=== PATIENT | female | born 1960 | race Caucasian/White ===

== ENCOUNTER → 2021-08-05 | Outpatient (CLI) | payer OTHER ==
--- NOTE | 2021-08-05 16:13 | CARD ---
MR#: [id number] Date of Study: 08/05/2021 Ordering Physician: SORAYA OSBORNE, Referring Physician: SORAYA OSBORNE Tech: Vanessa Haile PRISCILA APPROVED REPORT EXAM: Two-dimensional and M-mode echocardiogram with Doppler and color Doppler. Other Information Quality : AverageHR: 59bpm Rhythm : NSR INDICATION Pericardial Effusion RISK FACTORS Hypertension 2D DIMENSIONS RVDd2.8 (2.9-3.5cm)Left Atrium(2D)4.0 (1.6-4.0cm) IVSd0.9 (0.7-1.1cm)Aortic Root(2D)3.2 (2.0-3.7cm) LVDd4.4 (3.9-5.9cm)LVOT Diameter2.3 (1.8-2.4cm) PWd0.9 (0.7-1.1cm)LVDs2.4 (2.5-4.0cm) FS (%) 45.9 %SV68.8 ml Aortic Valve AoV Peak Carmelo.108.6cm/sAoV VTI25.2cm AO Peak GR.4.7mmHgLVOT Peak Carmelo.74.6cm/s AO Mean GR.2mmHgAVA (VMAX)2.89cm2 Mitral Valve MV E Egtdixzc44.3cm/sMV DECEL [id number] MV A Tadnfxvx26.5cm/sE/A Ratio1.3 Pulmonary Valve PV Peak Vpsfnyzj98.5cm/s Tricuspid Valve TR P. Zvkncujw298cd/sTR Peak Gr.25mmHg LEFT VENTRICLE The left ventricle is normal size. There is normal left ventricular wall thickness. The left ventricu lar systolic function is normal and the ejection fraction is within normal range. LV ejection fracti on of 55 to 60%. There is normal LV segmental wall motion. The left ventricular diastolic function a nd filling is normal for age. RIGHT VENTRICLE The right ventricle is normal size. There is normal right ventricular wall thickness. The right ventr icular systolic function is normal. ATRIA The left atrium is mildly dilated. The right atrium is mildy dilated. The interatrial septum is intac t with no evidence for an atrial septal defect or patent foramen ovale as noted on 2-D or Doppler katie ging. AORTIC VALVE The aortic valve is normal in structure and function. Doppler and Color Flow revealed no significant aortic regurgitation. There is no significant aortic valvular stenosis. MITRAL VALVE The mitral valve is normal in structure and function. There is no evidence of mitral valve prolapse. There is no mitral valve stenosis. Doppler and Color-flow revealed mild mitral regurgitation. TRICUSPID VALVE The tricuspid valve is normal in structure and function. Doppler and Color Flow revealed trace tricus pid valve regurgitation. PULMONIC VALVE The pulmonary valve is normal in structure and function. Doppler and Color Flow revealed no pulmonic valvular regurgitation. GREAT VESSELS The aortic root is normal in size. The ascending aorta is normal in size. The IVC is normal in size a nd collapses >50% with inspiration. PERICARDIAL EFFUSION There is a trace pericardial effusion with no hemodynamic significance. Critical Notification Critical Value: No <Conclusion> The left ventricle is normal size. The left ventricular systolic function is normal and the ejection fraction is within normal range. LV ejection fraction of 55 to 60%. There is normal LV segmental wall motion. Doppler and Color Flow revealed no significant aortic regurgitation. There is no significant aortic valvular stenosis. Doppler and Color-flow revealed mild mitral regurgitation. Doppler and Color Flow revealed trace tricuspid valve regurgitation. There is a trace pericardial effusion with no hemodynamic significance. Signed by : Jeronimo Maier MD Electronically Approved : 08/05/2021 16:12:44
== END ==
LOC: ECHO 10:51
PROVIDERS: ATTEND Family Medicine
DX: I34.0 Nonrheumatic mitral (valve) insufficiency (principal); R07.9 Chest pain, unspecified; I31.3 Pericardial effusion (noninflammatory); Z86.79 Personal history of other diseases of the circulatory system
CPT/HCPCS: 93306